=== PATIENT | female | born 1980 | race Hispanic/Latino ===

== ENCOUNTER 2023-07-10 22:24 | Emergency (ER) | payer MEDICARE ==
[~2023-07-10] VITALS: Ht 160 cm; Wt 92.1 kg
[2023-07-10 22:26] VITALS: BP 143/82; PULSE 89; RESP 16
[2023-07-10 22:53] LABS: BASOPHILS # (AUTO) 0.03 K/uL (0.00-0.20); BASOPHILS % (AUTO) 0.5 % (0.0-5.0); EOSINOPHILS # (AUTO) 0.26 K/uL (0.00-0.70); EOSINOPHILS % (AUTO) 4.1 % (0.0-8.0); HEMATOCRIT 32.3 % (36-48); IMMATURE GRANULOCYTE ABSOLUTE 0.01 K/uL (0-1); LYMPHOCYTES # (AUTO) 1.4 K/uL (1.0-4.8); LYMPHOCYTES % (AUTO) 22.3 % (21.0-51.0); MEAN CORPUSCULAR HEMOGLOBIN 24.7 pg (27.0-33.0); MEAN CORPUSCULAR HGB CONC 31.3 g/dL (32.0-36.0); MONOCYTES # (AUTO) 0.4 K/uL (0.1-1.0); MONOCYTES % (AUTO) 6.7 % (3.0-13.0); NEUTROPHILS # (AUTO) 4.2 K/uL (1.8-7.7); NEUTROPHILS % (AUTO) 66.2 % (40.0-77.0); PLATELET COUNT (AUTO) 334 K/uL (130-400); RED BLOOD CELL COUNT(AUTO) 4.09 MIL/uL (4.00-5.50); RED CELL DISTRIBUTION WIDTH 15.9 % (11.0-15.5); WHITE BLOOD COUNT (AUTO) 6.4 K/uL (4.8-10.8)
[2023-07-10 23:25] LABS: ALBUMIN 3.5 g/dL (3.5-5.0); BILIRUBIN,TOTAL 0.3 mg/dL (0.2-1.0); CREATININE 0.9 mg/dL (0.5-1.0); POTASSIUM 3.1 mmol/L (3.5-5.1); TOTAL PROTEIN, SERUM 7.5 g/dL (6.0-8.3)
[2023-07-10 23:29] LABS: APPEARANCE,URINE CLEAR (CLEAR); BILIRUBIN,URINE NEGATIVE (NEGATIVE); GLUCOSE, URINE (UA) NEGATIVE (NEGATIVE); KETONES,URINE NEGATIVE (NEGATIVE); LEUKOCYTE ESTERASE ,URINE NEGATIVE Leu/uL (NEGATIVE); NITRATE,URINE NEGATIVE (NEGATIVE); OCCULT BLOOD,URINE LARGE (NEGATIVE); PH,URINE 5.5 (5.0-8.0); PROTEIN,URINE NEGATIVE (NEGATIVE); UROBILINOGEN,URINE 0.2 mg/dL (0.2-1.0)
[2023-07-10 23:31] LABS: HCG,QUALITATIVE URINE NEGATIVE (NEGATIVE)
[2023-07-10 23:32] LABS: ADD UA MICROSCOPIC YES; COLOR,URINE PINK (YELLOW)
[2023-07-10 23:37] LABS: AMPHET/METH SCREEN,URINE NEGATIVE (NEGATIVE); BARBITURATE SCREEN, URINE NEGATIVE (NEGATIVE); BENZODIAZEPINES SCREEN,URINE NEGATIVE (NEGATIVE); CANNABINOID SCREEN,URINE NEGATIVE (NEGATIVE); COCAINE SCREEN,URINE NEGATIVE (NEGATIVE); OPIATE SCREEN,URINE POSITIVE (NEGATIVE); PHENCYCLIDINE SCREEN,URINE NEGATIVE (NEGATIVE)
[2023-07-10 23:40] LABS: MUCUS,URINE RARE LPF (None Seen); RBC,URINE 26-50 /HPF (0-1); SQUAMOUS EPITHELIAL CELL,UR RARE /HPF (0-2)
[2023-07-11] MEDS: MORPHINE 2 MG SYG IVP ONE (01:04)
[2023-07-11] MEDS: ONDANSETRON 4MG INJ IVP ONE (01:04)
[2023-07-11] MEDS: POTASSIUM BICARB/CIT AC 25 MEQ TABLET.EFF PO ONE (01:05)
== END 2023-07-11 01:18 | disposition home or self-care (01) ==
LOC: EDH 22:24
DX: R07.89 Other chest pain (principal); M79.602 Pain in left arm; E87.6 Hypokalemia; D64.9 Anemia, unspecified; G47.00 Insomnia, unspecified; R00.2 Palpitations
CPT/HCPCS: 99285; 71045; 84484; 80053; 80305; 85025; 81025; 36415; 93005; 81001; 96374; 96375; J2270; J2405

== ENCOUNTER 2023-09-09 10:08 | Emergency (ER) | payer OTHER, MEDICARE ==
[~2023-09-09] VITALS: Ht 160 cm; Wt 92.1 kg
[2023-09-09] MEDS: ONDANSETRON 4MG INJ IVP ONE (11:37)
[2023-09-09] MEDS: MORPHINE 2 MG SYG IVP ONE (11:38)
[2023-09-09 11:40] LABS: BASOPHILS # (AUTO) 0.05 K/uL (0.00-0.20); BASOPHILS % (AUTO) 0.4 % (0.0-5.0); EOSINOPHILS # (AUTO) 0.16 K/uL (0.00-0.70); EOSINOPHILS % (AUTO) 1.4 % (0.0-8.0); HEMATOCRIT 32.9 % (36-48); IMMATURE GRANULOCYTE ABSOLUTE 0.04 K/uL (0-1); LYMPHOCYTES # (AUTO) 0.7 K/uL (1.0-4.8); LYMPHOCYTES % (AUTO) 5.6 % (21.0-51.0); MEAN CORPUSCULAR HEMOGLOBIN 24.2 pg (27.0-33.0); MEAN CORPUSCULAR HGB CONC 31.6 g/dL (32.0-36.0); MEAN CORPUSCULAR VOLUME 76.7 fL (79-99); MONOCYTES # (AUTO) 0.4 K/uL (0.1-1.0); MONOCYTES % (AUTO) 3.4 % (3.0-13.0); NEUTROPHILS # (AUTO) 10.5 K/uL (1.8-7.7); NEUTROPHILS % (AUTO) 88.9 % (40.0-77.0); PLATELET COUNT (AUTO) 374 K/uL (130-400); RED BLOOD CELL COUNT(AUTO) 4.29 MIL/uL (4.00-5.50); RED CELL DISTRIBUTION WIDTH 16.1 % (11.0-15.5); WHITE BLOOD COUNT (AUTO) 11.8 K/uL (4.8-10.8)
[2023-09-09 11:51] LABS: CREATININE 0.9 mg/dL (0.5-1.0)
[2023-09-09 13:46] VITALS: BP 98/56; PULSE 54; RESP 16; O2SAT 99
[2023-09-10] MEDS ORDERED: HYDR-4381 PO (13:08)
[2023-09-10] MEDS ORDERED: ALPR1TAB7 PO (13:08)
[2023-09-10] MEDS ORDERED: PROM25TA7 PO (13:08)
[2023-09-10] MEDS ORDERED: SUMA100T16 PO (13:08)
[2023-09-10] MEDS ORDERED: METH4TAB16 PO (13:08)
[2023-09-10] MEDS ORDERED: DULO60CA64 PO (13:08)
[2023-09-10] MEDS ORDERED: CARB100T61 PO (13:08)
== END 2023-09-09 13:35 | disposition home or self-care (01) ==
LOC: EDH 10:08
DX: S00.83XA Contusion of other part of head, initial encounter (principal); G43.909 Migraine, unspecified, not intractable, without status migrainosus; M54.2 Cervicalgia; Z88.6 Allergy status to analgesic agent; Z91.040 Latex allergy status; W18.39XA Other fall on same level, initial encounter; Y93.89 Activity, other specified; Y92.89 Other specified places as the place of occurrence of the external cause; Y99.8 Other external cause status
CPT/HCPCS: 99284; 70450; 96374; 96375; 84484; 80048; 84703; 85025; 36415; 72125; 93005; J2270; J2405

== ENCOUNTER 2023-09-10 06:13 | Observation (INO) | payer OTHER, MEDICARE ==
[~2023-09-10] VITALS: Ht 160 cm; Wt 92.1 kg
[2023-09-10 08:12] LABS: BASOPHILS # (AUTO) 0.03 K/uL (0.00-0.20); BASOPHILS % (AUTO) 0.3 % (0.0-5.0); HEMATOCRIT 30.3 % (36-48); IMMATURE GRANULOCYTE ABSOLUTE 0.03 K/uL (0-1); LYMPHOCYTES # (AUTO) 1.1 K/uL (1.0-4.8); LYMPHOCYTES % (AUTO) 10.7 % (21.0-51.0); MEAN CORPUSCULAR HEMOGLOBIN 24.6 pg (27.0-33.0); MEAN CORPUSCULAR HGB CONC 32.3 g/dL (32.0-36.0); MEAN CORPUSCULAR VOLUME 76.1 fL (79-99); MONOCYTES # (AUTO) 0.3 K/uL (0.1-1.0); MONOCYTES % (AUTO) 2.9 % (3.0-13.0); NEUTROPHILS # (AUTO) 8.5 K/uL (1.8-7.7); NEUTROPHILS % (AUTO) 85.8 % (40.0-77.0); PLATELET COUNT (AUTO) 401 K/uL (130-400); RED BLOOD CELL COUNT(AUTO) 3.98 MIL/uL (4.00-5.50); RED CELL DISTRIBUTION WIDTH 15.9 % (11.0-15.5); WHITE BLOOD COUNT (AUTO) 9.9 K/uL (4.8-10.8)
[2023-09-10 08:24] LABS: CREATININE 0.8 mg/dL (0.5-1.0); POTASSIUM 3.7 mmol/L (3.5-5.1)
[2023-09-10 08:32] LABS: ALBUMIN 3.9 g/dL (3.5-5.0); BILIRUBIN,TOTAL 0.2 mg/dL (0.2-1.0)
[2023-09-10] MEDS ORDERED: ONDANSETRON 4MG INJ IVP PRN (10:30)
[2023-09-10] MEDS ORDERED: COMPOUND IV REFRIGERATED 1 EACH IVSOLN MISC PRN (11:00)
[2023-09-10] MEDS ORDERED: COMPOUND IV MISC 1 EACH IVSOLN MISC PRN (11:00)
[2023-09-10 11:03] LABS: INR 1.01 (0.85-1.15); PROTHROMBIN TIME 10.9 SEC (9.6-11.6)
[2023-09-10 11:05] LABS: PARTIAL THROMBOPLASTIN TIME 20.1 SEC (26.3-35.5)
[2023-09-10 11:20] VITALS: O2SAT 98
[2023-09-10 11:26] LABS: ALANINE AMINOTRANSFERASE 18 U/L (12-78); ALBUMIN 3.8 g/dL (3.5-5.0); ASPARTATE AMINOTRANSFERASE 20 U/L (10-37); BILIRUBIN,DIRECT 0.1 mg/dL (0.0-0.3); BILIRUBIN,TOTAL 0.2 mg/dL (0.2-1.0); CREATINE KINASE, TOTAL 88 U/L (21-232); THYROID STIMULATING HORMONE 0.26 uIU/mL (0.36-3.74); TOTAL PROTEIN, SERUM 8.4 g/dL (6.0-8.3)
[2023-09-10 11:27] LABS: ACETAMINOPHEN < 1 mcg/mL (10-30); SALICYLATE < 2.8 mg/dL (2.8-20.0)
[2023-09-10 11:30] LABS: HEMOGLOBIN A1C 5.8 % (4.0-6.0)
[2023-09-10 11:43] LABS: % IRON SATURATION 3.1 % (22-44)
[2023-09-10 12:00] VITALS: BP 144/77; PULSE 71; RESP 20
[2023-09-10] MEDS: M.V.I. IV [ADULT] 10 ML, FOLIC ACID 1 MG, THIAMINE HCL 100 MG in 0.9%NACL 1000ML 1,000 ML IV SCH (12:09)
[2023-09-10] MEDS ORDERED: DULO60CA64 PO (13:08)
[2023-09-10] MEDS ORDERED: PROM25TA7 PO (13:08)
[2023-09-10] MEDS ORDERED: SUMA100T16 PO (13:08)
[2023-09-10] MEDS ORDERED: CARB100T61 PO (13:08)
[2023-09-10] MEDS ORDERED: ALPR1TAB7 PO (13:08)
[2023-09-10] MEDS ORDERED: HYDR-4381 PO (13:08)
[2023-09-10] MEDS ORDERED: METH4TAB16 PO (13:08)
[2023-09-10 16:00] VITALS: BP 131/88; PULSE 74
[2023-09-10] MEDS ORDERED: IOHEXOL 350 MG/ML 100ML INFUS..BTL IV ONE (16:36)
[2023-09-10 20:16] VITALS: BP 122/58; PULSE 57; RESP 18
[2023-09-10 20:50] VITALS: O2SAT 97
[2023-09-10 22:10] LABS: APPEARANCE,URINE CLEAR (CLEAR); BILIRUBIN,URINE NEGATIVE (NEGATIVE); COLOR,URINE LIGHT-YELLOW (YELLOW); GLUCOSE, URINE (UA) NEGATIVE (NEGATIVE); KETONES,URINE 40 mg/dL (NEGATIVE); LEUKOCYTE ESTERASE ,URINE NEGATIVE Leu/uL (NEGATIVE); NITRATE,URINE NEGATIVE (NEGATIVE); OCCULT BLOOD,URINE NEGATIVE (NEGATIVE); PH,URINE 6.5 (5.0-8.0); PROTEIN,URINE 20 mg/dL (NEGATIVE); UROBILINOGEN,URINE 0.2 mg/dL (0.2-1.0)
[2023-09-10 22:11] LABS: ADD UA MICROSCOPIC YES
[2023-09-10 22:13] LABS: MUCUS,URINE FEW LPF (None Seen); RBC,URINE 0-1 /HPF (0-1); SQUAMOUS EPITHELIAL CELL,UR RARE /HPF (0-2); WBC,URINE 0-1 /HPF (0-1)
[2023-09-10 22:18] LABS: AMPHET/METH SCREEN,URINE NEGATIVE (NEGATIVE); BARBITURATE SCREEN, URINE NEGATIVE (NEGATIVE); BENZODIAZEPINES SCREEN,URINE NEGATIVE (NEGATIVE); CANNABINOID SCREEN,URINE NEGATIVE (NEGATIVE); COCAINE SCREEN,URINE NEGATIVE (NEGATIVE); OPIATE SCREEN,URINE NEGATIVE (NEGATIVE); PHENCYCLIDINE SCREEN,URINE NEGATIVE (NEGATIVE)
[2023-09-10 23:22] VITALS: BP 129/69; PULSE 70; RESP 16
[2023-09-11] VITALS (8 sets, daily range): BP systolic 107–147; BP diastolic 53–84; PULSE 68–86; RESP 16–20; O2SAT 96–97
[2023-09-11 05:02] LABS: BASOPHILS # (AUTO) 0.04 K/uL (0.00-0.20); BASOPHILS % (AUTO) 0.4 % (0.0-5.0); EOSINOPHILS # (AUTO) 0.01 K/uL (0.00-0.70); EOSINOPHILS % (AUTO) 0.1 % (0.0-8.0); HEMATOCRIT 28.3 % (36-48); IMMATURE GRANULOCYTE ABSOLUTE 0.04 K/uL (0-1); LYMPHOCYTES # (AUTO) 1.1 K/uL (1.0-4.8); LYMPHOCYTES % (AUTO) 12.7 % (21.0-51.0); MEAN CORPUSCULAR HGB CONC 31.1 g/dL (32.0-36.0); MEAN CORPUSCULAR VOLUME 77.3 fL (79-99); MONOCYTES # (AUTO) 0.5 K/uL (0.1-1.0); MONOCYTES % (AUTO) 5.1 % (3.0-13.0); NEUTROPHILS # (AUTO) 7.3 K/uL (1.8-7.7); NEUTROPHILS % (AUTO) 81.3 % (40.0-77.0); PLATELET COUNT (AUTO) 343 K/uL (130-400); RED BLOOD CELL COUNT(AUTO) 3.66 MIL/uL (4.00-5.50); RED CELL DISTRIBUTION WIDTH 15.9 % (11.0-15.5)
[2023-09-11 05:46] LABS: ALBUMIN 3.2 g/dL (3.5-5.0); BILIRUBIN,TOTAL 0.3 mg/dL (0.2-1.0); CREATININE 0.7 mg/dL (0.5-1.0); MAGNESIUM 2.1 mg/dL (1.80-2.40); POTASSIUM 3.3 mmol/L (3.5-5.1); TOTAL PROTEIN, SERUM 7.2 g/dL (6.0-8.3)
[2023-09-11] MEDS: CYANOCOBALAMIN (VITAMIN B-12) 1,000 MCG TABLET PO SCH (09:00)
[2023-09-11] MEDS: LORAZEPAM 2 MG/ML 1 ML VIAL IVP ONE (15:30)
[2023-09-11] MEDS ORDERED: GADOTERATE MEGLUMINE 10 MMOL/20 ML VIAL IV ONE (16:43)
[2023-09-12] VITALS (8 sets, daily range): BP systolic 123–156; BP diastolic 66–98; PULSE 57–80; RESP 17–21; O2SAT 99
[2023-09-12] MEDS: ACETAMINOPHEN 500 MG TABLET PO PRN (01:37)
[2023-09-12] MEDS: MORPHINE 2 MG SYG IVP ONE (02:26)
[2023-09-12 05:48] LABS: HEMATOCRIT 27.5 % (36-48); MEAN CORPUSCULAR HGB CONC 31.3 g/dL (32.0-36.0); MEAN CORPUSCULAR VOLUME 76.6 fL (79-99); RED BLOOD CELL COUNT(AUTO) 3.59 MIL/uL (4.00-5.50); RED CELL DISTRIBUTION WIDTH 15.9 % (11.0-15.5); WHITE BLOOD COUNT (AUTO) 7.8 K/uL (4.8-10.8)
[2023-09-12 06:05] LABS: CREATININE 0.7 mg/dL (0.5-1.0); POTASSIUM 3.8 mmol/L (3.5-5.1)
[2023-09-12] MEDS ORDERED: DIPH-1242 PO (16:49)
[2023-09-12] MEDS ORDERED: ASPI1TAB7 PO (16:49)
[2023-09-12] MEDS: ALPRAZOLAM 1 MG TAB PO PRN (20:25)
[2023-09-13] MEDS: SUMATRIPTAN SUCCINATE 25 MG TABLET PO PRN (00:16)
[2023-09-13] MEDS: ALPRAZOLAM 0.5 MG TABLET ONE (01:26)
[2023-09-13] MEDS: ALPRAZOLAM 0.5 MG TABLET PO ONE (01:42)
[2023-09-13 04:00] VITALS: BP 143/91; PULSE 91; RESP 20
[2023-09-13 05:15] LABS: HEMATOCRIT 31.3 % (36-48); MEAN CORPUSCULAR HEMOGLOBIN 23.8 pg (27.0-33.0); MEAN CORPUSCULAR HGB CONC 30.7 g/dL (32.0-36.0); MEAN CORPUSCULAR VOLUME 77.7 fL (79-99); RED BLOOD CELL COUNT(AUTO) 4.03 MIL/uL (4.00-5.50); RED CELL DISTRIBUTION WIDTH 15.7 % (11.0-15.5)
[2023-09-13 05:34] LABS: CREATININE 0.8 mg/dL (0.5-1.0); POTASSIUM 3.1 mmol/L (3.5-5.1)
[2023-09-13] MEDS ORDERED: POTASSIUM CHLORIDE 20MEQ/100ML 100 ML IV PRN (06:00)
[2023-09-13] MEDS ORDERED: POTASSIUM CHLORIDE 10% ELIXIR 20 MEQ/15 ML UDCUP PO PRN (06:00)
[2023-09-13] MEDS: KCL 20 MEQ ERTAB PO PRN (06:08)
[2023-09-13] MEDS: IBUPROFEN 600 MG TABLET PO ONE (06:09)
[2023-09-13 07:27] VITALS: BP 136/77; PULSE 89; RESP 16
[2023-09-13 11:04] VITALS: BP 132/81; PULSE 86; RESP 16
[2023-09-13] MEDS ORDERED: POTA-364 PO (11:48)
[2023-09-15 10:15] LABS: AMPHETAMINES SERUM Negative ng/mL (Cutoff:50); COCAINE+METABOLITES SERUM Negative ng/mL (Cutoff:25)
== END 2023-09-13 14:15 | disposition home or self-care (01) ==
LOC: EDH 06:13 → EDHIP 10:21 → INTOOBSV 10:21 → 3DH 11:25 → 3CH 19:00
PROVIDERS: ADMIT Internal Medicine; ATTEND Internal Medicine
DX: T42.4X1A Poisoning by benzodiazepines, accidental (unintentional), initial encounter (principal); D50.9 Iron deficiency anemia, unspecified; D75.839 Thrombocytosis, unspecified; E87.6 Hypokalemia; F31.9 Bipolar disorder, unspecified; F41.9 Anxiety disorder, unspecified; G51.0 Bell's palsy; E66.9 Obesity, unspecified; Y92.009 Unspecified place in unspecified non-institutional (private) residence as the place of occurrence of the external cause; R11.2 Nausea with vomiting, unspecified; Z79.899 Other long term (current) drug therapy; Z98.890 Other specified postprocedural states; Z68.36 Body mass index [BMI] 36.0-36.9, adult
CPT/HCPCS: 80305 ×2; 96365; 96366 ×4; 99284; 83036; 80156; 84443; 83540; 83550; 82550; 83735 ×2; 80053 ×2; 84703; 82728; 82140; 85025 ×2; 85610; 85730; 85651; 82390; 83605; 82607; 82746; 86140; 81001; 36415 ×4; 70450; 70496; 70498; 74176; 93005; 84145; 96375 ×2; 82948; 84439; 84481; 70553; 95819; 82248; 80048 ×2; 85027 ×2; G0378 ×76; A4600; G0481; J7030 ×3; J3411 ×3; J3490 ×3; Q9967; J2060; A9575; J2270; 80076

== ENCOUNTER 2024-01-15 08:42 | Emergency (ER) | payer OTHER, MEDICARE ==
[~2024-01-15] VITALS: Ht 160 cm; Wt 92.1 kg
[~2024-01-15 08:42] MED LIST: ALPR1TAB7 PO; ASPI1TAB7 PO; DIPH-1242 PO; POTA-364 PO; PROM25TA7 PO; SUMA100T16 PO
[2024-01-15 08:46] VITALS: BP 121/90; PULSE 110; RESP 18; TEMP 98.5
--- NOTE | 2024-01-15 10:38 | ERN ---
ED Note History of Present Illness Stated Complaint: MULTIPLE COMPLAINTS Chief Complaint: Multiple Complaints Time Seen by MD: 10:02 Dictation: PATIENT IS A 43-YEAR-OLD FEMALE THAT WAS INTERVIEWED AND IS IN TEARS BECAUSE HE IS HAS NOT BEEN ABLE TO SLEEP FOR SEVERAL DAYS. SHE STATES SHE RAN OUT OF HER XANAX AND HER NORCO FOR HER CHRONIC BACK PAIN SEVERAL DAYS AGO AND DOES NOT HAVE AN APPOINTMENT WITH HER DR. WILSON UNTIL WEDNESDAY. SHE STATES I JUST NEED SOMETHING TO HELP ME RELAX OR TO SLEEP UNTIL I CAN SEE HIM ON WEDNESDAY FOR MY REFILLS. SHE IS IN TEARS, STATES SHE HAS INTERMITTENT THOUGHTS OF SUICIDE DUE TO HER CHRONIC BACK PAIN IN HER DEPRESSION. NO PLAN. Allergies: Coded Allergies: ketorolac (Unverified Allergy, Unknown, 07/10/23) latex (Unverified Allergy, Unknown, 07/10/23) Home Meds Active Scripts Potassium Chloride (Potassium Chloride) 20 Meq Tablet.er, 20 MEQ PO DAILY for 3 Days, #3 TAB Prov:IRENE BUSTILLO 09/13/23 Reported Medications Aspirin/Acetaminophen/Caffeine (Excedrin Migraine Caplet) 250 Mg-250 Mg-65 Mg Tablet, 1 TAB PO AD, TAB 09/12/23 Diphenhydramine HCl (Benadryl) 25 Mg Cap, 25 MG PO AD, CAP 09/12/23 Alprazolam (Alprazolam) 1 Mg Tablet, 1 MG PO TIDP PRN for ANXIETY, TAB 09/10/23 Sumatriptan Succinate (Sumatriptan Succinate) 100 Mg Tablet, 100 MG PO BID PRN for MIGRAINE HEADACHE MDD 2, TAB may take second dose after two hours 09/10/23 Promethazine HCl (Promethazine HCl) 25 Mg Tablet, 25 MG PO [id number] PRN for NAUSEA, TAB 09/10/23 Past Medical History Past Medical History: No Pertinent History Additional Past Medical Hx: CHRONINC BACK PAIN Surgical History: Other Surgical History Other: BACK SX PSYCH History: no pertinent psych hx History: Not Applicable RN Note Reviewed/Agreed w/PFSH: Yes Review of System Dictation CONSTITUTIONAL: NEGATIVE EXCEPT FOR HPI HEAD/FACE: NEGATIVE EXCEPT FOR HPI EENT: NEGATIVE EXCEPT FOR HPI RESPIRATORY: NEGATIVE EXCEPT FOR HPI GASTROINTESTINAL/ABDOMINAL: NEGATIVE EXCEPT FOR HPI GENITOURINARY: NEGATIVE EXCEPT FOR HPI MUSCULOSKELETAL: NEGATIVE EXCEPT FOR HPI BACK PAIN/INSOMNIA INTEGUMENTARY: NEGATIVE EXCEPT FOR HPI NEUROLOGICAL/PSYCH: NEGATIVE EXCEPT FOR HPI HEMATOLOGIC/LYMPHATIC: NEGATIVE EXCEPT FOR HPI ALL SYSTEMS NEGATIVE, EXCEPT NOTED ABOVE. 13 POINT REVIEW OF SYSTEMS ASSESSED AND ALL NEGATIVE EXCEPT FOR ABOVE. Initial Vital Sign VS Vital Signs Date Time Temp Pulse Resp B/P (MAP) Pulse Ox O2 Delivery O2 Flow Rate FiO2 01/15/24 08:46 98.4 110 18 121/90 100 Room Air 0 Physical Exam Dictation VITAL SIGNS REVIEWED TEARFUL/ANXIOUS DENIES SUICIDAL OR HOMICIDAL IDEATION AT THIS TIME MOTHER AT BEDSIDE. GENERAL APPEARANCE: ALERT, ORIENTED X 3, NO ACUTE DISTRESS, WELL DEVELOPED, NOURISHED. HEAD AND FACE: NON-TRAUMATIC. EYES: PERRL, PINK CONJUNCTIVAS, EYELID NO TRAUMA, ANTERIOR CHAMBER WITH ARCUS SENILIS. EARS: PINNAS INTACT AND NO SIGNS OF TRAUMA OR ERYTHEMA EAR CANALS CLEAR AND NO DISCHARGE TM NO ERYTHEMA NOSE: NO DISCHARGE, NO BLEEDING. OROPHARYNX: MOUTH NORMAL, TONGUE PINK, PHARYNX CLEAR,NO ERYTHEMA, TONSILS NO EXUDATES, NO ABSCESSES NOTED, MUCOUS MEMBRANE MOIST NECK: SUPPLE, NON-TENDER, NO THYROMEGALY, NO MASSES, NO JVD, NO BRUITS BREAST:DEFERRED CHEST:NO TENDERNESS, NO CREPITUS, NO PARADOXICAL MOVEMENT, NO RETRACTIONS LUNGS:CLEAR, WELL-VENTILATED, SYMMETRIC, NO RALES, NO WHEEZING, NO RHONCHI, NO STRIDOR, GOOD BREATH SOUNDS BILATERALLY HEART: REGULAR RATE, REGULAR RHYTHM, NO MURMUR, NO GALLOPS VASCULAR: NO PERIPHERAL EDEMA, ABDOMEN: SOFT, POSITIVE BOWEL SOUNDS, NONDISTENDED, NO GUARDING, NONTENDER, NO REBOUND, NO MASSES NO HEPATOMEGALY, NO SPLENOMEGALY, NO SELLERS'S SIGN, NO HERNIAS. RECTAL: DEFERRED GENITAL: DEFERRED NEUROLOGICAL: NORMAL SPEECH, MOTOR FUNCTION INTACT, SENSORY FUNCTION INTACT MUSCULOSKELETAL: NECK NONTENDER, FULL RANGE OF MOTION, BACK DIFFUSE LUMBAR TENDERNESS, CHRONIC, FULL RANGE OF MOTION, EXTREMITIES: NONTENDER, FULL RANGE OF MOTION SKIN: COLOR PINK, DRY, NO TURGOR, NO RASH, NO LACERATIONS, NO ABRASIONS, NO CONTUSIONS. LYMPHATIC: DEFERRED Results (Laboratory/Radiology) Laboratory/Radiology Laboratory Tests Test 01/15/24 10:50 White Blood Count 8.4 K/uL (4.8-10.8) Red Blood Count 3.92 MIL/uL (4.00-5.50) L Hemoglobin 9.2 g/dL (12.0-16.0) L Hematocrit 30.3 % (36-48) L Mean Corpuscular Volume 77.3 fL (79-99) L Mean Corpuscular Hemoglobin 23.5 pg (27.0-33.0) L Mean Corpuscular Hemoglobin Concent 30.4 g/dL (32.0-36.0) L Red Cell Distribution Width 16.6 % (11.0-15.5) H Platelet Count 365 K/uL (130-400) Mean Platelet Volume 10.9 fL (7.5-10.5) H Immature Granulocyte % (Auto) 0.4 % (0-1) Neutrophils (%) (Auto) 66.4 % (40.0-77.0) Lymphocytes (%) (Auto) 23.5 % (21.0-51.0) Monocytes (%) (Auto) 7.4 % (3.0-13.0) Eosinophils (%) (Auto) 1.7 % (0.0-8.0) Basophils (%) (Auto) 0.6 % (0.0-5.0) Neutrophils # (Auto) 5.6 K/uL (1.8-7.7) Lymphocytes # (Auto) 2.0 K/uL (1.0-4.8) Monocytes # (Auto) 0.6 K/uL (0.1-1.0) Eosinophils # (Auto) 0.14 K/uL (0.00-0.70) Basophils # (Auto) 0.05 K/uL (0.00-0.20) Absolute Immature Granulocyte (auto 0.03 K/uL (0-1) Nucleated Red Blood Cells 0.0 % (0.0-0.19) Sodium Level 145 mmol/L (136-145) Potassium Level 3.7 mmol/L (3.5-5.1) Chloride Level 110 mmol/L (101-111) Carbon Dioxide Level 25 mmol/L (21-32) Blood Urea Nitrogen 11 mg/dL (7-18) Creatinine 0.9 mg/dL (0.5-1.0) Glomerular Filtration Rate Calc 81 mL/min (>90) Random Glucose 96 mg/dL (70-105) Total Calcium 8.9 mg/dL (8.5-10.1) ED Course ED Course Orders Procedure Category Date Status Time Cbc With Differential LAB 01/15/24 In Process 10:35 Alcohol, Blood LAB 01/15/24 In Process 10:35 Salicylate LAB 01/15/24 In Process 10:35 Acetaminophen LAB 01/15/24 In Process 10:35 Urinalysis Profile LAB 01/15/24 Logged 10:35 Creatine Kinase, Total LAB 01/15/24 In Process 10:35 Basic Metabolic Panel LAB 01/15/24 In Process 10:35 Drug Screen Urine LAB 01/15/24 Logged 10:35 Diphenhydramine Hcl PHA 01/15/24 Complete (Benadryl Cap) 11:00 Current Medications Medications (Trade) Dose Ordered Sig/Kamron Route PRN Reason Start Time Stop Time Status Last Admin Dose Admin Diphenhydramine HCl (BENAdryl CAP) 50 mg ONCE ONCE PO 01/15/24 11:00 01/15/24 11:01 DC 01/15/24 10:55 Vital Signs Date Time Temp Pulse Resp B/P (MAP) Pulse Ox O2 Delivery O2 Flow Rate FiO2 01/15/24 08:46 98.4 110 18 121/90 100 Room Air 0 ELEVEN 10, PATIENT IS REFUSING LABS AND DOES NOT WANT TREATMENT AT THIS TIME SHE STATES SHE WILL GO TO HER PRIMARY CARE DOCTOR ON WEDNESDAY FOR HER REFILLS. Medical Decision Making MDM MEDICAL DECISION-MAKING BASED ON PATIENT LEAVING AGAINST MEDICAL ADVICE AFTER REFUSING TREATMENT. SHE WAS REQUESTING REFILLS FOR NARCOTICS AND ANXIOLYTICS WITHOUT ANY LABS AND IS TEARFUL WITH THE EXAM. I ADVISED HER I WOULD NOT BE REFILLING CONTROLLED SUBSTANCES UNLESS LABS WERE DRAWN AND I COULD GET HER MEDICALLY CLEARED. SHE LEFT WITH HER MOTHER DX & DISP Disposition: AMA Departure Impression: Primary Impression: Insomnia Additional Impressions: Anxiety, Drug-seeking behavior Condition: Stable Referrals: NIKKY WILSON MD (PCP) Time of Disposition: 11:14 I have reviewed the case, and I agree with, Diagnosis and Plan JAMES KEENAN NP Jan 15, 2024 10:37
[2024-01-15 10:55] LABS: BASOPHILS # (AUTO) 0.05 K/uL (0.00-0.20); BASOPHILS % (AUTO) 0.6 % (0.0-5.0); EOSINOPHILS # (AUTO) 0.14 K/uL (0.00-0.70); EOSINOPHILS % (AUTO) 1.7 % (0.0-8.0); HEMATOCRIT 30.3 % (36-48); IMMATURE GRANULOCYTE ABSOLUTE 0.03 K/uL (0-1); LYMPHOCYTES % (AUTO) 23.5 % (21.0-51.0); MEAN CORPUSCULAR HEMOGLOBIN 23.5 pg (27.0-33.0); MEAN CORPUSCULAR HGB CONC 30.4 g/dL (32.0-36.0); MEAN CORPUSCULAR VOLUME 77.3 fL (79-99); MONOCYTES # (AUTO) 0.6 K/uL (0.1-1.0); MONOCYTES % (AUTO) 7.4 % (3.0-13.0); NEUTROPHILS # (AUTO) 5.6 K/uL (1.8-7.7); NEUTROPHILS % (AUTO) 66.4 % (40.0-77.0); PLATELET COUNT (AUTO) 365 K/uL (130-400); RED BLOOD CELL COUNT(AUTO) 3.92 MIL/uL (4.00-5.50); RED CELL DISTRIBUTION WIDTH 16.6 % (11.0-15.5); WHITE BLOOD COUNT (AUTO) 8.4 K/uL (4.8-10.8)
[2024-01-15] MEDS: DiphenhydrAMINE HCL 25 MG CAPSULE PO ONE (10:55)
[2024-01-15 11:06] LABS: CARBON DIOXIDE 25 mmol/L (21-32); CHLORIDE 110 mmol/L (101-111); CREATININE 0.9 mg/dL (0.5-1.0); GLOMERULAR FILTR. RATE CALC 81 mL/min (>90); GLUCOSE,RANDOM 96 mg/dL (70-105); POTASSIUM 3.7 mmol/L (3.5-5.1); SODIUM SERUM 145 mmol/L (136-145); UREA NITROGEN, BLOOD 11 mg/dL (7-18)
[2024-01-15 11:11] LABS: ALCOHOL, BLOOD < 3 mg/dL (0-10); CREATINE KINASE, TOTAL 100 U/L (21-232)
--- NOTE | 2024-01-15 11:32 | NUR ---
PT REFUSED LAB DRAW, SIGNED AMA FORM AND LEFT ER
[2024-01-15 11:45] LABS: SALICYLATE < 2.8 mg/dL (2.8-20.0)
[2024-01-15 11:46] LABS: ACETAMINOPHEN < 1 mcg/mL (10-30)
== END 2024-01-15 11:34 | disposition left against medical advice (07) ==
LOC: EDH 08:42
DX: G47.00 Insomnia, unspecified (principal); F41.9 Anxiety disorder, unspecified; G89.29 Other chronic pain; M54.9 Dorsalgia, unspecified; Z76.5 Malingerer [conscious simulation]; Z79.899 Other long term (current) drug therapy; Z98.890 Other specified postprocedural states
CPT/HCPCS: 99282; 82550; 80048; 85025; 36415; Q0163; G0481; 99283

== ENCOUNTER 2024-10-22 22:27 | Emergency (ER) | payer OTHER, MEDICARE ==
[~2024-10-22] VITALS: Ht 160 cm; Wt 135.2 kg
--- NOTE | 2024-10-22 22:31 | NUR ---
UA CUP PROVIDED
--- NOTE | 2024-10-22 22:32 | NUR ---
COVID FLU AND STREP SWABS COLLECTED AND SENT
--- NOTE | 2024-10-22 22:47 | NUR ---
PT UNABLE TO COLLECT A URINE AT THIS TIME
[2024-10-22 23:00] LABS: RAPID GROUP A STREP negative (NEGATIVE)
[2024-10-22 23:06] LABS: SARS-CoV-2, RNA, NAAT NEGATIVE SARS CoV-2 (NEGATIVE)
[2024-10-22 23:11] LABS: INFLUENZA TYPE A Negative For Type A (NEGATIVE); INFLUENZA TYPE B Negative For Type B (NEGATIVE)
[2024-10-22 23:31] LABS: IMMATURE GRANULOCYTE ABSOLUTE 0.05 K/uL (0-1); NUCLEATED RED BLOOD CELLS 0.0 % (0.0-0.19); PLATELET COUNT (AUTO) 630 K/uL (130-400); RED BLOOD CELL COUNT(AUTO) 3.97 MIL/uL (4.00-5.50); RED CELL DISTRIBUTION WIDTH 16.5 % (11.0-15.5); WHITE BLOOD COUNT (AUTO) 14.9 K/uL (4.8-10.8)
[2024-10-22 23:40] LABS: CREATININE 1.0 mg/dL (0.5-1.0); GLOMERULAR FILTR. RATE CALC 71.0 mL/min (>90); GLUCOSE,RANDOM 132.0 mg/dL (70-105); SODIUM SERUM 141.0 mmol/L (136-145); UREA NITROGEN, BLOOD 11.0 mg/dL (7-18)
[2024-10-22 23:45] LABS: ASPARTATE AMINOTRANSFERASE 20.0 U/L (10-37); TOTAL PROTEIN, SERUM 8.1 g/dL (6.0-8.3)
[2024-10-23] MEDS: 0.9%NACL 1000ML 1,000 ML IV ONE (00:40)
[2024-10-23 01:11] LABS: APPEARANCE,URINE CLEAR (CLEAR); GLUCOSE, URINE (UA) NEGATIVE (NEGATIVE); LEUKOCYTE ESTERASE ,URINE NEGATIVE Leu/uL (NEGATIVE); NITRATE,URINE NEGATIVE (NEGATIVE); OCCULT BLOOD,URINE MODERATE (NEGATIVE)
[2024-10-23 01:12] LABS: ADD UA MICROSCOPIC YES
[2024-10-23 01:14] LABS: HCG,QUALITATIVE URINE NEGATIVE (NEGATIVE)
[2024-10-23 01:15] VITALS: BP 118/81; PULSE 98; RESP 18; TEMP 98.5; O2SAT 99
[2024-10-23 01:17] LABS: SQUAMOUS EPITHELIAL CELL,UR MOD /HPF (0-2)
[2024-10-23] MEDS ORDERED: MACR100 PO (01:30)
--- NOTE | 2024-10-23 01:31 | ERN ---
General Chief Complaint: Multiple Complaints Stated Complaint: MIGRAINE, BACK PAIN, N/V/D Time Seen by MD: 22:41 Time Seen by Midlevel: 22:41 Source: patient History of Present Illness Initial Comments 44-year-old female history of chronic back pain currently seeing pain management presents to the ER for evaluation low back pain. Patient also reports history of kidney stones but states this back pain does not feel similar to previous episodes kidney stones Allergies: Coded Allergies: ketorolac (Unverified Allergy, Unknown, 07/10/23) latex (Unverified Allergy, Unknown, 07/10/23) Home Meds Active Scripts Potassium Chloride (Potassium Chloride) 20 Meq Tablet.er, 20 MEQ PO DAILY for 3 Days, #3 TAB Prov:IRENE BUSTILLO 09/13/23 Reported Medications Aspirin/Acetaminophen/Caffeine (Excedrin Migraine Caplet) 250 Mg-250 Mg-65 Mg Tablet, 1 TAB PO AD, TAB 09/12/23 Diphenhydramine HCl (Benadryl) 25 Mg Cap, 25 MG PO AD, CAP 09/12/23 Alprazolam (Alprazolam) 1 Mg Tablet, 1 MG PO TIDP PRN for ANXIETY, TAB 09/10/23 Sumatriptan Succinate (Sumatriptan Succinate) 100 Mg Tablet, 100 MG PO BID PRN for MIGRAINE HEADACHE MDD 2, TAB may take second dose after two hours 09/10/23 Promethazine HCl (Promethazine HCl) 25 Mg Tablet, 25 MG PO [id number] PRN for NAUSEA, TAB 09/10/23 Past Medical History Past Medical History: Migraines Medical History Other: CHRONINC BACK PAIN Past Surgical History: Other Surgical History Other: BACK SX Female( History) History: Not Applicable LMP: Oct 13, 2024 ROS Dictation CONSTITUTIONAL: Negative except for HPI HEAD/FACE: Negative except for HPI EENT: Negative except for HPI RESPIRATORY: Negative except for HPI GASTROINTESTINAL/ABDOMINAL: Negative except for HPI GENITOURINARY: Negative except for HPI MUSCULOSKELETAL: Negative except for HPI INTEGUMENTARY: Negative except for HPI NEUROLOGICAL/PSYCH: Negative except for HPI HEMATOLOGIC/LYMPHATIC: Negative except for HPI All Systems Negative, Except as noted above. 13 point review of systems assessed and all negative except for above. Physical Exam Physical Exam Dictation Vital Signs reviewed General Appearance: Alert, oriented x 3, no acute distress, well developed, nourished. Head and Face: non-traumatic. Eyes: PERRL, pink conjunctivas, eyelid no trauma, anterior chamber with arcus senilis. Ears: Pinnas intact and no signs of trauma or erythema ear canals clear and no discharge TM no erythema Nose: No discharge, no bleeding. Oropharynx: Mouth normal, tongue pink, pharynx clear,no erythema, tonsils no exudates, no abscesses noted, mucous membrane moist Neck: Supple, non-tender, no thyromegaly, no masses, no JVD, no bruits Breast:Deferred Chest:No tenderness, no crepitus, no paradoxical movement, no retractions Lungs:Clear, well-ventilated, symmetric, no rales, no wheezing, no rhonchi, no stridor, good breath sounds bilaterally Heart: Regular rate, regular rhythm, no murmur, no gallops Vascular: no peripheral edema, Abdomen: Soft, positive bowel sounds, nondistended, no guarding, nontender, no rebound, no masses no hepatomegaly, no splenomegaly, no Mesa's sign, no hernias. Rectal: Deferred Genital: Deferred Neurological: Normal speech, motor function intact, sensory function intact Musculoskeletal: Neck nontender, full range of motion, back nontender, full range of motion, Extremities: nontender, full range of motion Skin: Color pink, dry, no turgor, no rash, no lacerations, no abrasions, no contusions. Lymphatic: Deferred Results Laboratory and Microbiology Lab and Micro Result Laboratory Tests Test 10/22/24 22:35 10/22/24 23:24 10/23/24 00:58 Influenza Type A Antigen Negative For Type A Influenza Type B Antigen Negative For Type B SARS-CoV-2, RNA, NAAT NEGATIVE SARS CoV-2 Group A Streptococcus Rapid negative (NEGATIVE) White Blood Count 14.9 K/uL (4.8-10.8) H Red Blood Count 3.97 MIL/uL (4.00-5.50) L Hemoglobin 8.8 g/dL (12.0-16.0) L Hematocrit 28.7 % (36-48) L Mean Corpuscular Volume 72.3 fL (79-99) L Mean Corpuscular Hemoglobin 22.2 pg (27.0-33.0) L Mean Corpuscular Hemoglobin Concent 30.7 g/dL (32.0-36.0) L Red Cell Distribution Width 16.5 % (11.0-15.5) H Platelet Count 630 K/uL (130-400) H Mean Platelet Volume 10.4 fL (7.5-10.5) Immature Granulocyte % (Auto) 0.3 % (0-1) Neutrophils (%) (Auto) 83.3 % (40.0-77.0) H Lymphocytes (%) (Auto) 10.1 % (21.0-51.0) L Monocytes (%) (Auto) 6.0 % (3.0-13.0) Eosinophils (%) (Auto) 0.0 % (0.0-8.0) Basophils (%) (Auto) 0.3 % (0.0-5.0) Neutrophils # (Auto) 12.4 K/uL (1.8-7.7) H Lymphocytes # (Auto) 1.5 K/uL (1.0-4.8) Monocytes # (Auto) 0.9 K/uL (0.1-1.0) Eosinophils # (Auto) 0.00 K/uL (0.00-0.70) Basophils # (Auto) 0.04 K/uL (0.00-0.20) Absolute Immature Granulocyte (auto 0.05 K/uL (0-1) Nucleated Red Blood Cells 0.0 % (0.0-0.19) Red Blood Cell Morphology See comments Sodium Level 141 mmol/L (136-145) Potassium Level 3.3 mmol/L (3.5-5.1) L Chloride Level 103 mmol/L (101-111) Carbon Dioxide Level 28 mmol/L (21-32) Blood Urea Nitrogen 11 mg/dL (7-18) Creatinine 1.0 mg/dL (0.5-1.0) Glomerular Filtration Rate Calc 71 mL/min (>90) Random Glucose 132 mg/dL (70-105) H Total Calcium 9.2 mg/dL (8.5-10.1) Total Bilirubin 0.4 mg/dL (0.2-1.0) Aspartate Amino Transf (AST/SGOT) 20 U/L (10-37) Alanine Aminotransferase (ALT/SGPT) 22 U/L (12-78) Alkaline Phosphatase 96 U/L (50-136) Total Protein 8.1 g/dL (6.0-8.3) Albumin 3.7 g/dL (3.5-5.0) Lipase 21 U/L (16-77) Urine Color LIGHT-YELLOW (YELLOW) Urine Appearance CLEAR (CLEAR) Urine pH 6.0 (5.0-8.0) Urine Specific [place] 1.025 (1.001-1.031) Urine Protein 100 mg/dL (NEGATIVE) H Urine Glucose (UA) NEGATIVE mg/dL (NEGATIVE) Urine Ketones 5 mg/dL (NEGATIVE) H Urine Occult Blood MODERATE (NEGATIVE) H Urine Nitrate NEGATIVE (NEGATIVE) Urine Bilirubin SMALL mg/dL (NEGATIVE) H Urine Urobilinogen 0.2 mg/dL (0.2-1.0) Urine Leukocyte Esterase NEGATIVE [place]/uL Urine RBC 6-10 /HPF (0-1) H Urine WBC 6-10 /HPF (0-1) H Urine Squamous Epithelial Cells MOD /HPF (0-2) Urine Calcium Phosphate Crystals RARE /LPF (None Seen) Urine Bacteria FEW /HPF (None Seen) Urine Hyaline Casts 2-5 /LPF (0-1 /LPF) H Urine HCG, Qualitative NEGATIVE (NEGATIVE) Labs Reviewed?: Yes MDM MDM: Differential diagnosis: Urinary tract infection, chronic back pain, There are no social concerns with this patient. Prescription drug management Prescriptions will include: Macrobid Medical management and examination interpretation discussions were had by me with other qualified healthcare professionals as indicated for the patient's care. ED Course Orders Procedure Category Date Status Time Covid Rna Naat LAB 10/22/24 Complete 22:30 Influenza Type A & B, LAB 10/22/24 Complete Rapid 22:30 Rapid (Group A Strep) LAB 10/22/24 Complete 22:30 Urinalysis Profile LAB 10/22/24 Complete 22:30 ,Urine Test LAB 10/22/24 Complete 22:30 Cbc With Differential LAB 10/22/24 Complete 22:53 Comprehensive LAB 10/22/24 Complete Metabolic Panel 22:53 Lipase LAB 10/22/24 Complete 22:53 Morphine 2mg Syg PHA 10/22/24 Complete (Morphine 2mg Syg) 23:00 Ondansetron 4mg Inj PHA 10/22/24 Complete (Zofran 4mg Inj) 23:00 0.9%Nacl 1000ml (Ns PHA 10/23/24 Complete 1000ml) 00:30 Culture Urine MELODY 10/23/24 In Process 01:19 Current Medications Medications (Trade) Dose Ordered Sig/Kamron Route PRN Reason Start Time Stop Time Status Last Admin Dose Admin Morphine Sulfate (morPHINE 2MG SYG) 2 mg ONCE ONCE IVP 10/22/24 23:00 10/22/24 23:01 DC 10/22/24 23:51 Ondansetron HCl (zoFRAN 4MG INJ) 4 mg ONCE ONCE IVP 10/22/24 23:00 10/22/24 23:01 DC 10/22/24 23:51 Sodium Chloride 1,000 ml @ 0 mls/hr ONCE ONCE IV 10/23/24 00:30 10/23/24 00:36 DC 10/23/24 00:40 Vital Signs Date Time Temp Pulse Resp B/P (MAP) Pulse Ox O2 Delivery O2 Flow Rate FiO2 10/23/24 01:15 98.4 98 18 118/81 99 Room Air* 0 21 10/22/24 22:28 99.3 117 20 115/85 100 Room Air DX & DISP Disposition: Discharge Departure Impression: Primary Impression: Chronic back pain Additional Impression: Urinary tract infection Condition: Stable Scripts Nitrofurantoin/Nitrofuran Mac (Macrobid) 100 Mg Cap 1 CAP PO BID for 7 Days, #14 CAP 0 Refills Prov: HAMLET HATFIELD 10/23/24 Referrals: NIKKY WILSON MD (PCP) Time of Disposition: 01:30 I have reviewed the case, and I agree with, Diagnosis and Plan I performed the substantive portion of the visit. I have reviewed and personally made and approve the management plan that is documented in the note by myself or the CATHLEEN. I acknowledge for responsibility for the patient's management plan. HAMLET HATFIELD Oct 23, 2024 01:31
== END 2024-10-23 01:40 | disposition home or self-care (01) ==
LOC: EDH 22:27
DX: G89.29 Other chronic pain (principal); M54.50 Low back pain, unspecified; N39.0 Urinary tract infection, site not specified; G43.909 Migraine, unspecified, not intractable, without status migrainosus; Z79.899 Other long term (current) drug therapy; Z91.040 Latex allergy status; Z20.822 Contact with and (suspected) exposure to COVID-19
CPT/HCPCS: 99283; 96374; 87635; 96375; 80053; 83690; 85025; 87086; 87880; 87804 ×2; 81001; 81025; 36415; J2270; J2405; J7030